=== PATIENT | female | born 1995 | race Caucasian/White ===

== ENCOUNTER 2016-12-14 07:08 | Day surgery (SDC) | payer BC, OTHER ==
[2016-12-13 10:22] LABS: HCG UR OBC PASS
[~2016-12-14] VITALS: Ht 175.3 cm; Wt 69.7 kg
[~2016-12-14 07:08] MED LIST: BUPIVACAINE/PF 0.5% ONE; CRAN500C PO; CYAN1TAB29 PO; EPINEPHRINE 1 MG/ML, 1ML ONE; FOLI1TAB44 PO; LIDOCAINE/PF 1.5%-EPI 1:200K, 30ML ONE; MAGNESIUM PO; MULT-230 PO
[2016-12-14] MEDS ORDERED: LACTATED RINGERS 1,000 ML IV SCH (07:33)
[2016-12-14 07:57] LABS: HCG UR OBC PASS
[2016-12-14] MEDS ORDERED: LIDOCAINE 1%, 2ML SQ PRN (08:00)
[2016-12-14] MEDS ORDERED: MIDAZOLAM 1 MG/ML, 2ML ONE (08:03)
[2016-12-14] MEDS ORDERED: FENTANYL PF 100 MCG/2ML ONE (08:03)
[2016-12-14 08:08] VITALS: BP 109/77
[2016-12-14] MEDS ORDERED: CEFAZOLIN 1,000 MG ONE (08:27)
[2016-12-14] MEDS ORDERED: METOCLOPRAMIDE 5 MG/ML, 2ML ONE (08:27)
[2016-12-14] MEDS ORDERED: DEXAMETHASONE 4 MG/ML, 1ML ONE (08:27)
[2016-12-14] MEDS ORDERED: PROPOFOL 10 MG/ML, 20ML ONE (08:27)
[2016-12-14] MEDS ORDERED: ONDANSETRON 2MG/ML, 2ML ONE (08:27)
[2016-12-14] MEDS ORDERED: PROMETHAZINE 25 MG/ML, 1ML IV PRN (08:30)
[2016-12-14] MEDS ORDERED: MIDAZOLAM 1 MG/ML, 2ML IV PRN (08:30)
[2016-12-14] MEDS ORDERED: ACETAMINOPHEN 325 MG TABLET PO PRN (08:30)
[2016-12-14] MEDS ORDERED: HYDROmorphone 1 MG/ML, 1ML IV PRN (08:30)
[2016-12-14] MEDS ORDERED: OXYcodone 5 MG/5 ML ORAL.SOL UDC PO PRN (08:30)
[2016-12-14] MEDS ORDERED: FENTANYL PF 100 MCG/2ML IV PRN (08:30)
[2016-12-14] MEDS ORDERED: ONDANSETRON 2MG/ML, 2ML IVPush PRN (08:30)
[2016-12-14] MEDS ORDERED: ALBUTEROL/IPRATROPIUM 2.5MG/0.5MG, 3 ML NPPB PRN (08:30)
[2016-12-14] MEDS ORDERED: hydrALAzine 20 MG/ML, 1ML IV PRN (08:30)
[2016-12-14] MEDS ORDERED: LABETALOL 5MG/ML, 20ML IV PRN (08:30)
[2016-12-14] MEDS ORDERED: MEPERIDINE/PF 25MG/0.5ML IVPush PRN (08:30)
[2016-12-14] MEDS ORDERED: KETOROLAC 30 MG/1 ML ONE (09:01)
[2016-12-14] MEDS ORDERED: ACETAMINOPHEN 650 MG/20.3 ML UDC ONE (09:01)
[2016-12-14] MEDS ORDERED: OXYcodone 5 MG/5 ML ORAL.SOL UDC ONE (09:02)
[2016-12-14] MEDS ORDERED: KETOROLAC 30 MG/1 ML IV PRN (09:30)
== END 2016-12-14 10:30 ==
LOC: OUT 07:08 → EDSEX 09:00 → OUT 10:30
PROVIDERS: ATTEND Orthopaedic Surgery
DX: S83.241A Other tear of medial meniscus, current injury, right knee, initial encounter (principal); M21.961 Unspecified acquired deformity of right lower leg; M94.261 Chondromalacia, right knee; M23.41 Loose body in knee, right knee; X58.XXXA Exposure to other specified factors, initial encounter; Y93.89 Activity, other specified; Y92.89 Other specified places as the place of occurrence of the external cause; Y99.8 Other external cause status; Z88.6 Allergy status to analgesic agent
CPT/HCPCS: 29879; 29881; 81025; J0171; J0690; J1100; J1885; J2250; J2405; J2704; J2765; J3010; J3490; J7120